=== PATIENT | male | born 1970 | race Caucasian/White ===

== ENCOUNTER 2018-03-21 21:05 | Emergency (ER) | payer SELFPAY ==
[~2018-03-21] VITALS: Ht 172.7 cm; Wt 72.1 kg
[2018-03-21 21:13] VITALS: Ht 172.7 cm; Wt 72.1 kg
[2018-03-22 00:44] VITALS: BP 147/85
== END 2018-03-22 00:44 | disposition home or self-care (01) ==
LOC: ED 21:05
DX: L03.115 Cellulitis of right lower limb (principal)
CPT/HCPCS: J0696; J1885

== ENCOUNTER 2018-03-25 00:45 | Emergency (ER) | payer SELFPAY ==
[~2018-03-25] VITALS: Ht 172.7 cm; Wt 72.6 kg
[2018-03-25 00:51] VITALS: Ht 172.7 cm; Wt 72.6 kg
[2018-03-25 01:34] LABS: BASOPHIL % 0.4 % (0-2); PLATELET COUNT 199 x10^3mcL (130-400); RED CELL DISTRIBUTION WIDTH 14.3 % (11.5-14.5)
[2018-03-25 01:48] LABS: CALCIUM 8.8 mg/dL (8.5-10.1); CARBON DIOXIDE 28.9 mmol/L (21-32); CHLORIDE SERUM 103 mmol/L (98-107); CREATININE SERUM 1.1 mg/dL (0.7-1.3); GFR1 > 60 mL/min; GLUCOSE SERUM 110 mg/dL (74-106); POTASSIUM SERUM 3.2 mmol/L (3.5-5.1); SODIUM SERUM 138 mmol/L (136-145)
[2018-03-25 01:52] LABS: ALKALINE PHOSPHATASE 85 U/L (46-116); ALT/SGPT 22 U/L (16-63); AST/SGOT 33 U/L (15-37); BILIRUBIN TOTAL 0.3 mg/dL (0.20-1.00); TOTAL PROTEIN, SERUM 6.8 g/dL (6.4-8.2)
[2018-03-25 01:56] LABS: ALBUMIN 3.1 g/dL (3.4-5.0)
[2018-03-25 03:23] LABS: microscopic required? NO
[2018-03-25 04:07] LABS: urine erythrocyte NEGATIVE (NEGATIVE)
[2018-03-25 04:42] LABS: AMPHETAMINE QUAL UR POSITIVE (NEG <=1000)
[2018-03-25 05:26] VITALS: BP 158/81
== END 2018-03-25 05:26 | disposition home or self-care (01) ==
LOC: ED 00:45
PROVIDERS: Emergency Medicine
DX: F15.980 Other stimulant use, unspecified with stimulant-induced anxiety disorder (principal); E87.6 Hypokalemia
CPT/HCPCS: J2060; J7030

== ENCOUNTER 2018-03-29 00:09 | Emergency (ER) | payer SELFPAY ==
[~2018-03-29] VITALS: Ht 172.7 cm; Wt 71.7 kg
[2018-03-29 00:14] VITALS: Ht 172.7 cm; Wt 71.7 kg
[2018-03-29 01:25] LABS: BASOPHIL % 1.4 % (0-2); PLATELET COUNT 248 x10^3mcL (130-400)
[2018-03-29 01:27] LABS: RED CELL DISTRIBUTION WIDTH 14.7 % (11.5-14.5)
[2018-03-29 01:37] LABS: CALCIUM 8.3 mg/dL (8.5-10.1); CARBON DIOXIDE 27.8 mmol/L (21-32); CHLORIDE SERUM 105 mmol/L (98-107); CREATININE SERUM 0.6 mg/dL (0.7-1.3); GFR1 > 60 mL/min; GLUCOSE SERUM 109 mg/dL (74-106); POTASSIUM SERUM 3.4 mmol/L (3.5-5.1); SODIUM SERUM 141 mmol/L (136-145)
[2018-03-29 02:20] VITALS: BP 128/86
== END 2018-03-29 03:56 | disposition home or self-care (01) ==
LOC: ED 00:09
PROVIDERS: Emergency Medicine
DX: S42.322A Displaced transverse fracture of shaft of humerus, left arm, initial encounter for closed fracture (principal); W11.XXXA Fall on and from ladder, initial encounter; Y93.89 Activity, other specified; Y92.89 Other specified places as the place of occurrence of the external cause; Y99.8 Other external cause status
CPT/HCPCS: 36415; J1885; Q0092

== ENCOUNTER 2018-04-05 09:55 | Emergency (ER) | payer MEDICAID | END 2018-04-05 10:01 | disposition left against medical advice (07) | LOC: ED 09:55 | DX: Z53.21 Procedure and treatment not carried out due to patient leaving prior to being seen by health care provider (principal) ==

== ENCOUNTER 2018-04-11 11:04 | Emergency (ER) | payer MEDICAID ==
[~2018-04-11] VITALS: Ht 172.7 cm; Wt 72.6 kg
[2018-04-11 11:08] VITALS: Ht 172.7 cm; Wt 72.6 kg
[2018-04-11 11:41] LABS: PLATELET COUNT 291 x10^3mcL (130-400); RED CELL DISTRIBUTION WIDTH 13.6 % (11.5-14.5)
[2018-04-11 11:50] LABS: CALCIUM 8.3 mg/dL (8.5-10.1); CARBON DIOXIDE 23.8 mmol/L (21-32); CHLORIDE SERUM 95 mmol/L (98-107); CREATININE SERUM 0.6 mg/dL (0.7-1.3); GFR1 > 60 mL/min; GLUCOSE SERUM 110 mg/dL (74-106); POTASSIUM SERUM 3.1 mmol/L (3.5-5.1); SODIUM SERUM 134 mmol/L (136-145)
[2018-04-11 11:55] LABS: ALBUMIN 3.5 g/dL (3.4-5.0); ALKALINE PHOSPHATASE 92 U/L (46-116); ALT/SGPT 15 U/L (16-63); AMYLASE 37 U/L (25-115); AST/SGOT 25 U/L (15-37); BILIRUBIN TOTAL 0.6 mg/dL (0.20-1.00); LIPASE 63 IU/L (73-393); MAGNESIUM 1.7 mg/dL (1.8-2.4); TOTAL PROTEIN, SERUM 7.8 g/dL (6.4-8.2)
[2018-04-11 13:40] LABS: microscopic required? NO
[2018-04-11 13:46] LABS: urine erythrocyte NEGATIVE (NEGATIVE)
[2018-04-11 14:02] LABS: AMPHETAMINE QUAL UR POSITIVE (See below)
[2018-04-11 17:49] VITALS: BP 138/86
== END 2018-04-11 18:00 | disposition home or self-care (01) ==
LOC: ED 11:04
PROVIDERS: Emergency Medicine
DX: S42.302A Unspecified fracture of shaft of humerus, left arm, initial encounter for closed fracture (principal); R11.10 Vomiting, unspecified; R10.9 Unspecified abdominal pain; F10.129 Alcohol abuse with intoxication, unspecified; F17.210 Nicotine dependence, cigarettes, uncomplicated; F12.20 Cannabis dependence, uncomplicated; F15.20 Other stimulant dependence, uncomplicated; X58.XXXA Exposure to other specified factors, initial encounter; Y93.89 Activity, other specified; Y92.89 Other specified places as the place of occurrence of the external cause; Y99.8 Other external cause status
CPT/HCPCS: 83880; 99406; G0480; J1630; J2060; J3411; J3475; J3490

== ENCOUNTER 2019-09-05 06:35 | Emergency (ER) | payer SELFPAY ==
[~2019-09-05] VITALS: Ht 172.7 cm; Wt 68.9 kg
[2019-09-05 07:17] VITALS: BP 160/93
== END 2019-09-05 07:17 | disposition home or self-care (01) ==
LOC: ED 06:35
DX: L03.115 Cellulitis of right lower limb (principal); F17.200 Nicotine dependence, unspecified, uncomplicated
CPT/HCPCS: 99406

== ENCOUNTER 2020-11-23 12:14 | Emergency (ER) | payer MEDICAID ==
[~2020-11-23] VITALS: Ht 167.6 cm; Wt 72.6 kg
[2020-11-23 12:27] VITALS: Ht 167.6 cm; Wt 72.6 kg
[2020-11-23 13:46] VITALS: BP 123/73
== END 2020-11-23 13:46 | disposition home or self-care (01) ==
LOC: ED 12:14
DX: S82.831A Other fracture of upper and lower end of right fibula, initial encounter for closed fracture (principal); W12.XXXA Fall on and from scaffolding, initial encounter; Y93.89 Activity, other specified; Y92.89 Other specified places as the place of occurrence of the external cause; Y99.8 Other external cause status